=== PATIENT | female | born 1960 | race Caucasian/White ===

== ENCOUNTER → 2019-06-29 | Day surgery (SDC) | payer OTHER ==
[~2019-06-29] VITALS: Ht 170.2 cm; Wt 89.8 kg
[2019-06-29 07:47] VITALS: BP 95/69
[2019-06-29 10:55] VITALS: BP 126/57
== END | disposition home or self-care (01) ==
LOC: DS 06:51 → GI 09:30 → OR 09:30
DX: Z12.11 Encounter for screening for malignant neoplasm of colon (principal); K57.30 Diverticulosis of large intestine without perforation or abscess without bleeding; D12.9 Benign neoplasm of anus and anal canal; K63.89 Other specified diseases of intestine; Z88.2 Allergy status to sulfonamides; Z88.8 Allergy status to other drugs, medicaments and biological substances; Z79.899 Other long term (current) drug therapy; Z86.010 Personal history of colon polyps; Z90.710 Acquired absence of both cervix and uterus; Z98.890 Other specified postprocedural states; Z85.820 Personal history of malignant melanoma of skin
CPT/HCPCS: 45378; J1200; J1610; J2250; J2310; J3010; J3490